=== PATIENT | female | born 1970 | race Caucasian/White ===

== ENCOUNTER 2024-03-07 14:44 | Emergency (ER) | payer BC, OTHER ==
[~2024-03-07] VITALS: Ht 162.6 cm; Wt 88.0 kg
[2024-03-07 15:37] VITALS: BP 157/80; PULSE 72; RESP 18; TEMP 98; O2SAT 96
[2024-03-07] MEDS: HYDROcodone-ACET 5/325MG TAB PO ONE (16:23)
[2024-03-07] MEDS ORDERED: METH4PAK PO (16:33)
[2024-03-07] MEDS ORDERED: IBUP-1454 PO (16:33)
== END 2024-03-07 16:51 | disposition home or self-care (01) ==
LOC: ER 14:44
DX: S92.335A Nondisplaced fracture of third metatarsal bone, left foot, initial encounter for closed fracture (principal); S92.345A Nondisplaced fracture of fourth metatarsal bone, left foot, initial encounter for closed fracture; W10.8XXA Fall (on) (from) other stairs and steps, initial encounter; Y93.89 Activity, other specified; Y92.89 Other specified places as the place of occurrence of the external cause; Y99.8 Other external cause status
CPT/HCPCS: 29515; 73630; 82962